=== PATIENT | male | born 1965 | race Asian ===

== ENCOUNTER 2019-12-12 07:49 | Day surgery (SDC) | payer OTHER ==
[~2019-12-12] VITALS: Ht 180.3 cm; Wt 81.6 kg
[2019-12-12 09:58] VITALS: BP 126/91
[2019-12-12 12:15] VITALS: BP 150/79
== END 2019-12-12 12:05 | disposition home or self-care (01) ==
LOC: DS 07:49 → GI 10:00 → OR 10:00 → DS 12:05
DX: Z12.11 Encounter for screening for malignant neoplasm of colon (principal); Z79.899 Other long term (current) drug therapy; Z98.890 Other specified postprocedural states
CPT/HCPCS: 45378; J1200; J1610; J2250; J2310; J3010; J3490; Q0092